=== PATIENT | female | born 1995 | race Caucasian/White ===

== ENCOUNTER 2022-03-05 08:06 | Emergency (ER) | payer OTHER, SELFPAY ==
[2022-03-05 08:16] VITALS: BP 120/83; PULSE 105; RESP 18; TEMP 36.5; O2SAT 99; BMI 19.9
--- NOTE | 2022-03-05 08:22 | ED_ITS ---
HPI - General Adult General Time Seen by Provider: 08:23 Date Seen: 03/05/22 Chief complaint: Nausea/Vomiting Stated complaint: 9 weeks can't keep anything down Time Seen by Provider: 03/05/22 08:16 Source: patient Mode of arrival: ambulatory Limitations: no limitations History of Present Illness HPI narrative: Patient is a 26 year white female with her 2nd about 9 weeks estimated gestational age, who is following with an OB doctor in [place]. She now lives in [place], but started care and weight-bearing like to continue there. She has had hyperemesis with her 1st , she still breast-feeding that child intermittently. She has had no fever chills abdominal pain trauma to the abdomen. She has had some Zofran prescribed air OB but it she has not picked it up yet. No chest pain, fevers, chills, dysuria frequency Related Data Home Medications Medication Instructions Recorded Confirmed doxylamine succinate 25 mg tablet 12.5 mg PO Q6H PRN 03/05/22 03/05/22 (Unisom (doxylamine)) metoclopramide HCl 10 mg tablet mg 03/05/22 pyridoxine (vitamin B6) 100 mg 50 mg PO DAILY 03/05/22 03/05/22 tablet (Vitamin B-6) Allergies Allergy/AdvReac Type Severity Reaction Status Date / Time amoxicillin Allergy Verified 03/05/22 08:18 Review of Systems Status of ROS: Reports: 6 or more systems reviewed and unremarkable except as noted in History and below Exam Narrative: Exam Narrative: Objective: Patient's vital signs unremarkable in general she is no apparent distress, noncyanotic Denies any vaginal bleeding or contractions Abdomen benign soft nontender extremities are no edema Skin periphery warm and dry Pulses regular Const: Vital Signs, click to edit/add: Vital Signs - 24 hr 03/05/22 08:16 Temperature 97.7 F Pulse Rate [Right Pulse Oximeter] 105 H Respiratory Rate 18 Blood Pressure [Ri ght Upper Arm] 120/83 Pulse Oximetry 99 Oxygen Delivery Me thod Room Air Course Vital Signs Vital signs: Initial Vital Signs Temperature 97.7 F 03/05/22 08:16 Temperature Source Temporal Artery Scan 03/05/22 08:16 Pulse Rate 105 H 03/05/22 08:16 Respiratory Rate 18 03/05/22 08:16 Blood Pressure 120/83 03/05/22 08:16 Blood Pressure Mean 95 03/05/22 08:16 Blood Pressure Position Sitting 03/05/22 08:16 Pulse Oximetry 99 03/05/22 08:16 Oxygen Delivery Method 03/05/22 08:16 Vital Signs Temperature 97.7 F 03/05/22 08:16 Pulse Rate 105 H 03/05/22 08:16 Respiratory Rate 18 03/05/22 08:16 Blood Pressure 120/83 03/05/22 08:16 Pulse Oximetry 99 03/05/22 08:16 Oxygen Delivery Method 03/05/22 08:16 Temperature 97.7 F 03/05/22 08:16 Pulse Rate 105 H 03/05/22 08:16 Respiratory Rate 18 03/05/22 08:16 Blood Pressure 120/83 03/05/22 08:16 Pulse Oximetry 99 03/05/22 08:16 Oxygen Delivery Method 03/05/22 08:16 Medical Decision Making MDM Narrative Medical decision making narrative: Patient has what appears to be hyperemesis gravidarum, and will give her IV fluid 1 L, IV Zofran 4 mg IV, will check a heme 4 basic 7. When fluids in she can go home and rest light activity. They live in [place], and relayed to them that they may need to come back for additional treatment as this tends to be recurrent. Can use the Zofran as prescribed by her Ob at home. Fluids, light diet. Return as needed, update OB doctor within the next day or 2 of troubles or concerns, or return to the ED. Discharge Plan Discharge Clinical Impression: Hyperemesis gravidarum Patient Disposition: Home w/ Parent or Adult Condition: Improved Additional Instructions: Light activity, rest, Zofran as prescribed by her Ob. Update OB in the next couple of days if problems or concerns, return to ED as needed. Activity Level: Light activity Discharge Diet: Regular Prescriptions: No Action metoclopramide HCl 10 mg tablet Label Comments: TAKE 1 TABLET BY MOUTH FOUR TIMES DAILY NEEDED FOR NAUSEA pyridoxine (vitamin B6) [Vitamin B-6] 100 mg tablet 50 mg PO DAILY Unisom (doxylamine) 25 mg tablet 12.5 mg PO Q6H PRN Stand Alone Forms: [facility] Info Instructions
[2022-03-05] MEDS: ONDANSETRON 2 MG/ML inj 4 MG IVP (08:36)
[2022-03-05] MEDS: 0.9 % SODIUM CHLORIDE 1000 ml 1,000 ML 6000 ML IV (08:36)
[2022-03-05 08:37] LABS: Basophils Absolute Auto 0.02 K/uL (0.00-0.30); Basophils Percent Auto 0.2 % (0.0-3.0); Eosinophils Absolute Auto 0.01 K/uL (0.00-0.50); Eosinophils Percent Auto 0.1 % (0.0-7.0); Hematocrit 38.1 % (33.0-51.0); Hemoglobin* 13.3 gm/dL (12.0-16.0); Immature Granulocytes Abs Auto 0.01 K/uL (0.00-0.30); Immature Granulocytes Pct Auto 0.1 %; Lymphocytes Percent Auto 11.4 % (20-44); Mean Corpuscular HGB Conc 35 gm/dL (32-36); Mean Corpuscular Hemoglobin 29 pg (26-34); Mean Corpuscular Volume 84 fL (80-100); Monocytes Percent Auto 2.7 % (0.0-11.0); Neutrophils Percent Auto 85.5 % (42.0-72.0); Platelet Count* 272 K/uL (140-440); RDW Coefficient of Variation % 11.9 % (11.5-15.5); Red Blood Count 4.52 m/uL (4.00-5.20)
[2022-03-05 08:41] VITALS: PULSE 73; O2SAT 98
[2022-03-05 08:49] LABS: Chloride* 101 mmol/L (96-114); Potassium* 3.8 mmol/L (3.6-5.1); Sodium* 135 mmol/L (135-149)
[2022-03-05 08:52] LABS: Carbon Dioxide* 15 mmol/L (20-32); Creatinine* 0.5 mg/dL (0.5-1.5); Est. Creatinine Clearance* 139.14; Estimated Glomerular Filt Rate 131 ml/min
[2022-03-05 08:53] LABS: Blood Urea Nitrogen* 15 mg/dL (5-24); Calcium* 9.2 mg/dL (8.4-10.6); Glucose* 87 mg/dL (60-115)
[2022-03-05 08:54] LABS: Slide Review Reflex No
== END 2022-03-05 09:12 | disposition home or self-care (01) ==
LOC: ED 08:39
PROVIDERS: Emergency Provider Family Medicine
DX: O21.0 Mild hyperemesis gravidarum (principal); Z3A.09 9 weeks gestation of pregnancy
CPT/HCPCS: 36415; 80048; 85025; 96374; 99283; J2405; J7030

== ENCOUNTER 2023-06-03 22:06 | Emergency (ER) | payer OTHER, SELFPAY ==
[2023-06-03 22:09] VITALS: BP 110/67; PULSE 140; RESP 16; TEMP 36.1; O2SAT 98
--- NOTE | 2023-06-03 22:19 | ED.GENADULT ---
HPI - General Adult General Chief complaint: Nausea/Vomiting Stated complaint: nausea, diarrhea Time Seen by Provider: 06/03/23 22:15 Source: patient Mode of arrival: ambulatory Limitations: no limitations History of Present Illness HPI narrative: 27-year-old female coming in today complaining of nausea and vomiting for the last 15-16 hours. Woke up this morning and started vomiting. States that she has to vomit and have diarrhea every couple of hours. No blood in her stool or vomitus. No fevers or chills. She has abdominal cramping but no significant pain. No chest pain or shortness of breath. Her baby was sick recently. Related Data Home Medications Medication Instructions Recorded Confirmed doxylamine succinate 25 mg tablet 12.5 mg PO Q6H PRN 03/05/22 03/05/22 (Unisom (doxylamine)) metoclopramide HCl 10 mg tablet mg 03/05/22 pyridoxine (vitamin B6) 100 mg 50 mg PO DAILY 03/05/22 03/05/22 tablet (Vitamin B-6) Previous Rx's Medication Instructions Recorded ondansetron HCl 4 mg tablet 4 mg PO TID PRN nausea and 06/03/23 vomiting #10 tabs Allergies Allergy/AdvReac Type Severity Reaction Status Date / Time amoxicillin Allergy Verified 03/05/22 08:18 Review of Systems Status of ROS: Reports: 10 or more systems reviewed and unremarkable except as noted in History and below [facility] Social History Smoking Status: Never smoker How often do you have a drink containing alcohol: never AUDIT-C Alcohol total score: 0 Non-prescribed substance use: denies use service: No Exam Narrative: Exam Narrative: Patient is tachycardic. Thin, well-developed patient in no acute distress. Alert and oriented. Answers questions appropriately. Mood and affect are appropriate. Thoughts are goal oriented and rational. No tangential or magical thinking noted. Patient speaks in full sentences without needing to catch her breath. She does not appear ill or toxic. HEENT: Normocephalic atraumatic. Pupils are equally round reactive to light. Extraocular muscles are intact. Conjunctivae are moist without any icterus noted. Moist mucous membranes. Posterior pharynx is normal. Neck is soft without lymphadenopathy. Cardiovascular: Heart is regular rate and rhythm S1 and S2 are present without any murmurs. Lungs: Clear to auscultation bilaterally no wheezes rhonchi or rales are appreciated. Patient takes deep breaths without any discomfort. Abdomen: Soft and nontender nondistended with normal bowel sounds. No guarding or rebound. Extremities: Bilateral lower extremities are without edema. Delete the Skin: Well perfused without any obvious rashes. Const: Vital Signs, click to edit/add: Vital Signs - 24 hr 06/03/23 22:09 Temperature 97.0 F L Pulse Rate [Left P ulse Oximeter] 140 H Respiratory Rate 16 Blood Pressure [Ri ght Upper Arm] 110/67 Pulse Oximetry 98 Oxygen Delivery Me thod Room Air Course Course ED Course: IV was established and patient received a L of normal saline and Zofran. Vital Signs Vital signs: Initial Vital Signs Temperature 97.0 F L 06/03/23 22:09 Temperature Source Temporal Artery Scan 06/03/23 22:09 Pulse Rate 140 H 06/03/23 22:09 Pulse Rhythm Regular 06/03/23 22:09 Respiratory Rate 16 06/03/23 22:09 Blood Pressure 110/67 06/03/23 22:09 Blood Pressure Mean 81 06/03/23 22:09 Blood Pressure Position Sitting 06/03/23 22:09 Pulse Oximetry 98 06/03/23 22:09 Oxygen Delivery Method Room Air 06/03/23 22:09 Vital Signs Temperature 97.0 F L 06/03/23 22:09 Pulse Rate 140 H 06/03/23 22:09 Respiratory Rate 16 06/03/23 22:09 Blood Pressure 110/67 06/03/23 22:09 Pulse Oximetry 98 06/03/23 22:09 Oxygen Delivery Method Room Air 06/03/23 22:09 Temperature 97.0 F L 06/03/23 22:09 Pulse Rate 140 H 06/03/23 22:09 Respiratory Rate 16 06/03/23 22:09 Blood Pressure 110/67 06/03/23 22:09 Pulse Oximetry 98 06/03/23 22:09 Oxygen Delivery Method Room Air 06/03/23 22:09 Medications Administered Medications: Generic Name Dose Route Start Last Admin Trade Name Freq PRN Reason Stop Dose Admin Sodium Chloride 1,000 mls @ 1,000 mls/hr 06/03/23 22:30 06/03/23 22:32 0.9 % Sodium Chloride 1000 Ml IV 06/03/23 23:29 1,000 mls/hr .Q1H MIRLANDE Administration Ondansetron HCl 4 mg 06/03/23 22:19 06/03/23 22:31 Ondansetron 2 Mg/Ml Inj IVP 06/03/23 22:20 4 mg ONCE ONE Administration Medical Decision Making MDM Narrative Medical decision making narrative: 27-year-old female with gastroenteritis. Treated per above. We discussed hydration with things like Gatorade and Pedialyte. Will send her home with some tablets of Zofran to take as needed. Follow-up with primary care if not improving. Discharge Plan Discharge Clinical Impression: Gastroenteritis Patient Disposition: Home, Self-Care Condition: Stable Additional Instructions: Do your best to stay hydrated by taking small sips of fluid frequently throughout the day. Recommend Pedialyte or Gatorade. Slowly advanced her diet. We will also send you home with some Zofran, nausea medication to help with the vomiting. Diarrhea has been lingering for several days. Prescriptions: New ondansetron HCl 4 mg tablet 4 mg PO TID PRN (Reason: nausea and vomiting) Qty: 10 0RF No Action metoclopramide HCl 10 mg tablet Patient Comments: TAKE 1 TABLET BY MOUTH FOUR TIMES DAILY NEEDED FOR NAUSEA pyridoxine (vitamin B6) [Vitamin B-6] 100 mg tablet 50 mg PO DAILY Unisom (doxylamine) 25 mg tablet 12.5 mg PO Q6H PRN Follow Up/Referrals: Provider,Not a Local [Primary Care Provider] - Stand Alone Forms: [employer] Info Instructions
[2023-06-03] MEDS: ONDANSETRON 2 MG/ML inj 4 MG IVP (22:31)
[2023-06-03] MEDS: 0.9 % SODIUM CHLORIDE 1000 ml 1,000 ML IV (22:32)
--- OUTSIDE RECORDS SUMMARY | 2023-06-03 23:00 | XMS_ITS | Clinical Summary ---
Author Name Unknown Organization [facility] Address [place], [place] [address] Care Team Providers Care Clay Puddler Name Role Phone Ling Marlow MD Primary Care Provider Allergies Active Allergy Reactions Criticality Noted Date Comments Amoxicillin Rash,Fever 04/05/2021 Sulfa (Sulfonamide Antibiotics) Rash 03/24 Medications Medication Sig Dispensed Refills Start Date End Date Status vit/iron fum/folic ac ( 1 + 1 ORAL) Take by mouth. 0 Active [id number] 1.5 mg iron- 8.73 mg CpID Take by mouth. 0 Active cholecalciferol, vitamin D3, (Vitamin D3) 100 mcg (4,000 unit) cap Take by mouth. 0 Active acetaminophen (TYLENOL) 325 mg tablet Take 1-2 Tablets (325-650 mg) by mouth every 4 hours if needed (mild pain). Max acetaminophen dose: 4000mg in 24 hrs. 100 Tablet 0 04/06/2021 Active ibuprofen (Motrin IB) 200 mg tablet Take 1-3 Tablets (200-600 mg) by mouth every 6 hours if needed (for uterine cramping). Take with food. 100 Tablet 0 04/06/2021 Active Breast Pump PurchaseIndication s:Care and examination of lactating mother Electric breast pump for home use. Gestational age at delivery: 40 weeks. Reason for need: problem. Length of need: 99 months (lifetime use) 1 Each 0 04/06/2021 Active Breast Pump PurchaseIndication s:Care and examination of lactating mother Electric breast pump for home use. Gestational age at delivery: 41 weeks. Reason for need: Care of lactating mother. Length of need: 99 months (lifetime use) 1 Each 0 10/13/2022 Active Active Problems Problem Noted Date Diagnosed Date Normal labor and delivery 10/13/2022 Overview: OP position 10/11/2022 Group B Streptococcus ti r, delivered, current hospitalization 04/06/2021 Resolved Problems Problem Noted Date Diagnosed Date Resolved Date Encounter for supervision of normal first in third trimester 04/05/2021 04/05/2021 Social History Tobacco Use Types Packs/Day Years Used Date Smoking Tobacco: Never Smokeless Tobacco: Never Alcohol Use Standard Drinks/Week Comments Never 0 (1 standard drink = 0.6 oz pur e alcohol) Social Connections Answer Date Recorded Frequency of Communication with Friends and Fami ly Not on file 10/11/2022 Sex and Gender Information Value Date Recorded Sex Assigned at Not on file Gender Identity Not on file Sexual Orientation Not on file Obstetrics History Para Term AB IAB SAB Ectopic Multiple Livin g Live Births 2 2 2 0 2 2 Date Outcome GA Total Labor Labor/2nd/3rd Weight Sex Delivery Anes PTL Antonia A1 A5 Name Cl in 04/05 Term 40w 0d 14h 34m 13h 46m/0h 41m/0h 07m 3.14 kg (6 lb 14.8 oz) M Vag Epidu ral,L ocal Amira ng 8 9 SIRBA ,BB Francisca Dang MD Complications:None Delivery Location:Hospital ( [facility] L&D TRIAGE) 10/12 Term 41w 2d 16h 27m 15h 36m/0h 46m/0h 05m 3.74 kg (8 lb 3.9 oz) F Vag-Spont Epidu ral Amira ng 8 9 SIRBA ,BG Francisca Dang MD Complications:None Delivery Location:Hospital ( [facility] [address] MB L&D TRIAGE) Last Filed Vital Signs Vital Sign Reading Time Taken Comments Blood Pressure 103/61 10/13/2022 8:58 AM CDT Pulse 80 10/13/2022 8:58 AM CDT Temperature 36.7 ??C (98 ??F) 10/13/2022 8:58 AM CDT Respiratory Rate 16 10/13/2022 8:58 AM CDT Oxygen Saturation 98% 10/13/2022 8:58 AM CDT Inhaled Oxygen Concentration - - Weight 74.5 kg (164 lb 4.8 oz) 10/11/2022 7:35 P M CDT Height 162.6 cm (5' 4) 10/11/2022 7:35 PM CDT Body Mass Index 28.2 10/11/2022 7:35 PM CDT Plan of Treatment Health Maintenance Due Date Last Done Comments COVID-19 vaccine series (#1) 02/01/1994 Tdap 2004 Depression screening for age 12+ 2005 BMI (ht and wt on same day) for age 18+ 08/03/2011 Hepatitis C screening for ag e 18-79 08/03/2011 Tetanus booster 2013 Pap test for age 21-65 2014 Influenza for age 9-49 12/23/2022 HIV for age 15-65 Completed 04/05/2022 Pneumococcal series for age 6-64 Aged Out No longer eligible based on patient's age to complete this topic Advance Directives Latest Code Status on File Code Status Date Activated Date Inactivated Comments Full Code 10/12/2022 4:00 AM 10/13/2022 1:52 PM Question Answer Comments Code Status Discussion: Other Code Status History Code Status Date Activated Date Inactivated Comments Full Code 04/05/2021 10:31 AM 04/06/2021 3:49 PM Question Answer Comments Code Status Discussion: Other Care Teams Clay Puddler Relationship Specialty Start Date End Date Ling Marlow MD [id number] [place] [address] PCP - General Family Practice 03/10/21
== END 2023-06-03 23:13 | disposition home or self-care (01) ==
LOC: ED 22:57
PROVIDERS: Emergency Provider Family Medicine
DX: K52.9 Noninfective gastroenteritis and colitis, unspecified (principal)
CPT/HCPCS: 96374; 99284; J2405; J7030

== ENCOUNTER 2023-08-18 15:12 | Outpatient (CLI) | payer OTHER, SELFPAY ==
--- OUTSIDE RECORDS SUMMARY | 2023-08-18 15:15 | XMS_ITS | Clinical Summary ---
Author Name Unknown Organization [place] Address [facility]0 [facility] [place] [address] Care Team Providers Care Lay Out Former Name Role Phone No Ref-Primary, Physician Primary Care Provider Allergies Active Allergy Reactions Criticality Noted Date Comments Amoxicillin 06/20/2023 Encounters Date Type Department Care Team Description 06/20/2023 7:20 PM STORAGE BRINE WORKER - 06/20/2023 10:47 PM STORAGE BRINE WORKER Emergency [facility] Emergency Department [address] [place] [phone] Boris Lock MD Ectopic , unspecified location, unspecified whether intrauterine present Discharge Disposition: Home or Self Care 06/20/2023 Travel 06/17/2023 10:15 AM STORAGE BRINE WORKER Lab [facility] Laboratory [address] [place] [phone] Ectopic (Primary Dx) 06/17/2023 Travel from Last 3 Months Social History Tobacco Use Types Packs/Day Years Used Date Smoking Tobacco: Never Assessed Adolescent Education Answer Date Record ed Getting School Help Needed Not on file 06/17 Estimated Date of Delivery Comme nts Yes 01/23/2024 Sex and Gender Information Value Date Recorded Sex Assigned at Not on file Gender Identity Not on file Sexual Orientation Not on file Last Filed Vital Signs Vital Sign Reading Time Taken Comments Blood Pressure 106/57 06/20/2023 10:40 PM STORAGE BRINE WORKER Pulse 88 06/20/2023 10:40 PM STORAGE BRINE WORKER Temperature 37.4 ??C (99.4 ??F) 06/20/2023 5:03 PM CS T Respiratory Rate 16 06/20/2023 5:05 PM STORAGE BRINE WORKER Oxygen Saturation 96% 06/20/2023 10:40 PM STORAGE BRINE WORKER Inhaled Oxygen Concentration - - Weight 52.2 kg (115 lb) 06/20/2023 5:03 PM STORAGE BRINE WORKER Height 162.6 cm (5' 4) 06/20/2023 5:03 PM STORAGE BRINE WORKER Body Mass Index 19.74 06/20/2023 5:03 PM STORAGE BRINE WORKER Plan of Treatment Health Maintenance Due Date Last Done Comments ADVANCE CARE PLANNING 1993 ANNUAL REVIEW OF HM ORDERS 1993 YEARLY PREVENTIVE VISIT 1993 HIV SCREENING 2008 HEPATITIS C SCREENING 08/03/2011 HEPATITIS B IMMUNIZATION (1 of 3 - 19+ 3-dose series) 2012 PAP 2014 DTAP/TDAP/TD IMMUNIZATION (1 - Tdap) 2018 COVID-19 Vaccine (1 - 2022-2 4 season) 2022 INFLUENZA VACCINE (#1) 2022 PHQ-2 (once per calendar year) 2023 RSV VACCINE ( & 60+ ) (1 - Risk 1-dose series) 12/24/2023 HPV IMMUNIZATION Aged Out No longer e ligible based on patient's age to complete this topic IPV IMMUNIZATION Aged Out No longer e ligible based on patient's age to complete this topic MENINGITIS IMMUNIZATION Aged Out No l onger eligible based on patient's age to complete this topic Pneumococcal Vaccine: Pediat rics (0 to 5 Years) and At-Risk Patients (6 to 64 Years) Aged Out No longer eligi ble based on patient's age to complete this topic RSV MONOCLONAL ANTIBODY Aged Out No l onger eligible based on patient's age to complete this topic Procedures Procedure Name Priority Date/Time Associated Diagnosis Comments US OB <14 WEEKS WITH TRANSVAGINAL SINGLE STAT 06/20/2023 9:08 PM STORAGE BRINE WORKER ABO/RH TYPE AND SCREEN STAT 06/20/2023 5:51 PM STORAGE BRINE WORKER TYPE AND SCREEN, ADULT STAT 06/20/2023 5:51 PM STORAGE BRINE WORKER HCG QUANTITATIVE STAT 06/20/2023 5:51 PM STORAGE BRINE WORKER BASIC METABOLIC PANEL STAT 06/20/2023 5:51 PM STORAGE BRINE WORKER CBC WITH PLATELETS STAT 06/20/2023 5: 51 PM STORAGE BRINE WORKER HCG QUANTITATIVE STAT 06/17/2023 10:19 AM STORAGE BRINE WORKER Ectopic from Last 3 Months Results * US OB <14 Weeks W Transvaginal (06/20/2023 9:08 PM STORAGE BRINE WORKER) Anatomical Region Laterality Modality Abdomen/Pelvis Ultrasound 06/20/2023 9:08 PM STORAGE BRINE WORKER Impressions 06/20/2023 9:27 PM STORAGE BRINE WORKER IMPRESSION: 1. ??Sonographic findings most consistent with left sided ectopic . Critical Result: Suspected ectopic Finding was identified on 06/20/2023 9:23 PM STORAGE BRINE WORKER. Alix Lock M.D. was contacted by me on 06/20/2023 9:23 PM STORAGE BRINE WORKER and verbalized understanding of the critical result. Narrative 06/20/2023 9:27 PM STORAGE BRINE WORKER EXAM: US OB <14 WEEKS WITH TRANSVAGINAL SINGLE LOCATION: [facility] DATE: 06/20/2023 INDICATION: 5 wks with lower abd pain COMPARISON: None. TECHNIQUE: Transabdominal scans were performed. Endovaginal ultrasound was performed to better visualize the embryo. FINDINGS: UTERUS: No evidence of intrauterine gestation. RIGHT OVARY: 2.7 x 2.7 x 1.6 cm. LEFT OVARY: 2.0 x 1.5 x 1.8 cm. Adjacent 1.8 cm paraovarian mass with central cystic area highly suspicious for ectopic . Estimated sac diameter of 0.5 cm corresponds to an estimated gestational age of 5 weeks, 1 day. Procedure Note Jesse Leslie MD - 06/20/2023 EXAM: US OB <14 WEEKS WITH TRANSVAGINAL SINGLE LOCATION: [facility] DATE: 06/20/2023 INDICATION: 5 wks with lower abd pain COMPARISON: None. TECHNIQUE: Transabdominal scans were performed. Endovaginal ultrasound wasperformed to better visualize the embryo. FINDINGS: UTERUS: No evidence of intrauterine gestation. RIGHT OVARY: 2.7 x 2.7 x 1.6 cm. LEFT OVARY: 2.0 x 1.5 x 1.8 cm. Adjacent 1.8 cm paraovarian mass withcentral cystic area highly suspicious for ectopic . Estimated sacdiameter of 0.5 cm corresponds to an estimated gestational age of 5 weeks,1 day. IMPRESSION: 1. Sonographic findings most consistent with left sided ectopicpregnancy. Critical Result: Suspected ectopic Finding was identified on 06/20/2023 9:23 PM STORAGE BRINE WORKER. Alix Lock M.D. was contacted by me on 06/20/2023 9:23 PM CSTand verbalized understanding of the critical result. Boris Lock MD IMG US ORDERABLES * Adult Type and Screen (06/20/2023 5:51 PM STORAGE BRINE WORKER) Pathologist [facility] ABO/RH(D) A POS 06/20/2023 5:45 PM STORAGE BRINE WORKER [facility]OD [facility] Antibody Screen Negative Negative 06/20/2023 5:45 PM STORAGE BRINE WORKER [facility] SPECIMEN EXPIRATION DATE [id number] 06/20/2023 5:45 PM STORAGE BRINE WORKER [facility] Blood BLOOD SPECIMEN / Unknown Venipuncture / Unknown 06/20/2023 5:51 PM STORAGE BRINE WORKER 06/20/2023 5:55 PM STORAGE BRINE WORKER Amairani Arenas MD LAB - BLOOD BANK BORIS T ORDER [facility] [address] * (ABNORMAL) HCG quantitative (blood) (06/20/2023 5:51 PM STORAGE BRINE WORKER) Only the most recent of2 resultswithin the time period is included. hCG Quantitative 58(H) <5 mIU/mL 06/20/19 6:31 PM STORAGE BRINE WORKER [facility] Comment: Adult: 0-5 mIU/mL for healthy non- person Neonates: Should be within normal ranges by 2 days after Blood BLOOD SPECIMEN / Unknown Venipuncture / Unknown 06/20/2023 5:51 PM STORAGE BRINE WORKER 06/20/2023 5:55 PM STORAGE BRINE WORKER Amairani Arenas MD LAB - BLOOD ORDERABL ES N LABORATORY [facility] [address] [phone] * (ABNORMAL) Basic metabolic panel (06/20/2023 5:51 PM STORAGE BRINE WORKER) [facility] Sodium 140 135 - 145 mmol/L 06/20/2023 6:31 PM [facility] Comment:Reference intervals for this test were updated on 01/17/2023 to more accurately reflect our healthy population. There may be differences in the flagging of prior results with similar values performed with this method. Interpretation of those prior results can be made in the context of the updated reference intervals. Potassium 4.4 3.4 - 5.3 mmol/L 06/20/2023 6:31 PM [facility] Chloride 105 98 - 107 mmol/L 06/20/2023 6:31 PM [facility] Carbon Dioxide (CO2) 24 22 - 29 mmol/L 06/20/2023 6:31 PM [facility] Anion Gap 11 7 - 15 mmol/L 06/20/2023 6:31 PM [facility] Urea Nitrogen 19.1 6.0 - 20.0 mg/dL 06/20/2023 6:31 PM [facility] Creatinine 0.71 0.51 - 0.95 mg/dL 06/20/2023 6:31 PM [facility] GFR Estimate >90 >60 mL/min/1. 73m2 06/20/2023 6:31 PM [facility] Calcium 9.4 8.6 - 10.0 mg/dL 06/20/2023 6:31 PM [facility] Glucose 103(H) 70 - 99 mg/dL 06/20/2023 6:31 PM [facility] Blood BLOOD SPECIMEN / Unknown Venipuncture / Unknown 06/20/2023 5:51 PM STORAGE BRINE WORKER 06/20/2023 5:55 PM STORAGE BRINE WORKER Amairani Arenas MD LAB - BLOOD ORDERABL ES [facility] [address] [place] [address], [facility] [phone] * CBC (+ platelets, no diff) (06/20/2023 5:51 PM STORAGE BRINE WORKER) WBC Count 8.8 4.0 - 11.0 10e3/uL 06/20/2023 6:01 PM STORAGE BRINE WORKER [facility] RBC Count 5.00 3.80 - 5.20 10e6/uL 06/20/2023 6:01 PM STORAGE BRINE WORKER [facility] Hemoglobin 14.1 11.7 - 15.7 g/dL 06/20/2023 6:01 PM STORAGE BRINE WORKER [facility] Hematocrit 42.0 35.0 - 47.0 % 06/20/2023 6:01 PM STORAGE BRINE WORKER [facility] MCV 84 78 - 100 fL 06/20/2023 6:01 PM STORAGE BRINE WORKER [facility] MCH 28.2 26.5 - 33.0 pg 06/20/2023 6:01 PM STORAGE BRINE WORKER [facility] MCHC 33.6 31.5 - 36.5 g/dL 06/20/2023 6:01 PM STORAGE BRINE WORKER [facility] RDW 12.1 10.0 - 15.0 % 06/20/2023 6:01 PM STORAGE BRINE WORKER [facility] Platelet Count 351 150 - 450 10e3/uL 06/20/2023 6:01 PM STORAGE BRINE WORKER [facility] Blood BLOOD SPECIMEN / Unknown Venipuncture / Unknown 06/20/2023 5:51 PM STORAGE BRINE WORKER 06/20/2023 5:55 PM STORAGE BRINE WORKER Amairani Arenas MD LAB - BLOOD ORDERABL ES Performing Organization Address City/[facility]/ZIP Co de Phone Number N LABORATORY [facility] [address] [place] [address], [facility] [phone] from Last 3 Months Care Teams Lay Out Former Relationship Specialty Start Date End Date No Ref-Primary, Physician PCP - General 06/20/23
--- OUTSIDE RECORDS SUMMARY | 2023-08-18 15:15 | XMS_ITS | Referral Summary ---
Author Name Unknown Organization [place] Address [facility]0 [facility] [place] [address] Care Team Providers Care Music Professionals Name Role Phone No Ref-Primary, Physician Primary Care Provider Encounters Date Type Department Care Team Description 06/20/2023 Travel 06/20/2023 7:20 PM CAR SPOTTER - 06/20/2023 10:47 PM CAR SPOTTER Emergency [facility] Emergency Department [address] [place] [phone] Boris Lock MD Ectopic , unspecified location, unspecified whether intrauterine present Discharge Disposition: Home or Self Care 06/17/2023 Travel 06/17/2023 10:15 AM CAR SPOTTER Lab [facility] Laboratory [address] [place] [phone] Ectopic (Primary Dx) from Last 3 Months Allergies Active Allergy Reactions Criticality Noted Date Comments Amoxicillin 06/20/2023 Social History Tobacco Use Types Packs/Day Years [...] Comments Blood Pressure 106/57 06/20/2023 10:40 PM CAR SPOTTER Pulse 88 06/20/2023 10:40 PM CAR SPOTTER Temperature 37.4 ??C (99.4 ??F) 06/20/2023 5:03 PM CS T Respiratory Rate 16 06/20/2023 5:05 PM CAR SPOTTER Oxygen Saturation 96% 06/20/2023 10:40 PM CAR SPOTTER Inhaled Oxygen Concentration - - Weight 52.2 kg (115 lb) 06/20/2023 5:03 PM CAR SPOTTER Height 162.6 cm (5' 4) 06/20/2023 5:03 PM CAR SPOTTER Body Mass Index 19.74 06/20/2023 5:03 PM CAR SPOTTER Plan of Treatment Not on file Procedures Procedure Name Priority Date/Time Associated Diagnosis Comments US OB <14 WEEKS WITH TRANSVAGINAL SINGLE STAT 06/20/2023 9:08 PM CAR SPOTTER ABO/RH TYPE AND SCREEN STAT 06/20/2023 5:51 PM CAR SPOTTER TYPE AND SCREEN, ADULT STAT 06/20/2023 5:51 PM CAR SPOTTER HCG QUANTITATIVE STAT 06/20/2023 5:51 PM CAR SPOTTER BASIC METABOLIC PANEL STAT 06/20/2023 5:51 PM CAR SPOTTER CBC WITH PLATELETS STAT 06/20/2023 5: 51 PM CAR SPOTTER HCG QUANTITATIVE STAT 06/17/2023 10:19 AM CAR SPOTTER Ectopic from Last 3 Months Results * US OB <14 Weeks W Transvaginal (06/20/2023 9:08 PM CAR SPOTTER) Anatomical Region Laterality Modality Abdomen/Pelvis Ultrasound 06/20/2023 9:08 PM CAR SPOTTER Impressions 06/20/2023 9:27 PM CAR SPOTTER IMPRESSION: 1. ??Sonographic findings most consistent with left sided ectopic . Critical Result: Suspected ectopic Finding was identified on 06/20/2023 9:23 PM CAR SPOTTER. Alix Lock M.D. was contacted by me on 06/20/2023 9:23 PM CAR SPOTTER and verbalized understanding of the critical result. Narrative 06/20/2023 9:27 PM CAR SPOTTER EXAM: US OB <14 WEEKS WITH TRANSVAGINAL SINGLE LOCATION: [facility] DATE: 06/20/2023 INDICATION: 5 wks with lower [...] OB <14 WEEKS WITH TRANSVAGINAL SINGLE LOCATION: [facility] DATE: 06/20/2023 INDICATION: 5 wks with lower [...] Finding was identified on 06/20/2023 9:23 PM CAR SPOTTER. Alix Lock M.D. was contacted by me on 06/20/2023 9:23 PM CSTand verbalized understanding of the critical result. Boris Lock MD [facility] US ORDERABLES * Adult Type and Screen (06/20/2023 5:51 PM CAR SPOTTER) ABO/RH(D) A POS 06/20/2023 5:45 PM CAR SPOTTER [facility] BLOOD [facility]ANK Antibody Screen Negative Negative 06/20/2023 5:45 PM CAR SPOTTER [facility] BLOOD BANK SPECIMEN EXPIRATION DATE [id number] 06/20/2023 5:45 PM CAR SPOTTER N BLOOD BANK Blood BLOOD SPECIMEN / Unknown Venipuncture / Unknown 06/20/2023 5:51 PM CAR SPOTTER 06/20/2023 5:55 PM CAR SPOTTER Amairani Arenas MD LAB - BLOOD BANK BORIS T ORDER Performing Organization Address [facility] Co de Phone Number [facility]OD [facility] [address] [place] [address], [facility] * (ABNORMAL) HCG quantitative (blood) (06/20/2023 5:51 PM CAR SPOTTER) Only the most recent of2 resultswithin the time period is included. Pathologist [facility] hCG Quantitative 58(H) <5 mIU/mL 06/20/19 6:31 PM CAR SPOTTER N LABORATORY Comment: Adult: 0-5 mIU/mL for healthy non- person Neonates: Should be within normal ranges by 2 days after Blood BLOOD SPECIMEN / Unknown Venipuncture / Unknown 06/20/2023 5:51 PM CAR SPOTTER 06/20/2023 5:55 PM CAR SPOTTER Amairani Arenas MD LAB - BLOOD ORDERABL ES Performing Organization Address [facility] de Phone Number [facility] [address] [place] [address], [facility] [phone] * (ABNORMAL) Basic metabolic panel (06/20/2023 5:51 PM CAR SPOTTER) Pathologist [facility] Sodium 140 135 - 145 mmol/L 06/20/2023 6:31 PM CAR SPOTTER [facility] Comment:Reference intervals for this test were updated on 01/17/2023 to more accurately reflect our healthy population. There may be differences in the flagging of prior results with similar values performed with this method. Interpretation of those prior results can be made in the context of the updated reference intervals. Potassium 4.4 3.4 - 5.3 mmol/L 06/20/2023 6:31 PM CAR SPOTTER N LABORATORY Chloride 105 98 - 107 mmol/L 06/20/2023 6:31 PM CAR SPOTTER N LABORATORY Carbon Dioxide (CO2) 24 22 - 29 mmol/L 06/20/2023 6:31 PM [facility] Anion Gap 11 7 - 15 mmol/L 06/20/2023 6:31 PM [facility] Urea Nitrogen 19.1 6.0 - 20.0 mg/dL 06/20/2023 6:31 PM [facility] Creatinine 0.71 0.51 - 0.95 mg/dL 06/20/2023 6:31 PM [facility] GFR Estimate >90 >60 mL/min/1. 73m2 06/20/2023 6:31 PM [facility] Calcium 9.4 8.6 - 10.0 mg/dL 06/20/2023 6:31 PM [facility] Glucose 103(H) 70 - 99 mg/dL 06/20/2023 6:31 PM [facility] Blood BLOOD SPECIMEN / Unknown Venipuncture / Unknown 06/20/2023 5:51 PM CAR SPOTTER 06/20/2023 5:55 PM [facility] Amairani Arenas MD LAB - BLOOD ORDERABL ES N LABORATORY [facility] [address] [phone] * CBC (+ platelets, no diff) (06/20/2023 5:51 PM CAR SPOTTER) WBC Count 8.8 4.0 - 11.0 10e3/uL 06/20/2023 6:01 PM [facility] RBC Count 5.00 3.80 - 5.20 10e6/uL 06/20/2023 6:01 PM [facility] Hemoglobin 14.1 11.7 - 15.7 g/dL 06/20/2023 6:01 PM [facility] Hematocrit 42.0 35.0 - 47.0 % 06/20/2023 6:01 PM [facility] MCV 84 78 - 100 fL 06/20/2023 6:01 PM [facility] MCH 28.2 26.5 - 33.0 pg 06/20/2023 6:01 PM [facility] MCHC 33.6 31.5 - 36.5 g/dL 06/20/2023 6:01 PM CAR SPOTTER [facility] RDW 12.1 10.0 - 15.0 % 06/20/2023 6:01 PM CAR SPOTTER [facility] Platelet Count 351 150 - 450 10e3/uL 06/20/2023 6:01 PM CAR SPOTTER [facility] Blood BLOOD SPECIMEN / Unknown Venipuncture / Unknown 06/20/2023 5:51 PM CAR SPOTTER 06/20/2023 5:55 PM CAR SPOTTER Amairani Arenas MD LAB - BLOOD ORDERABL ES [facility] [address] [place], [place] [address] [place] [phone] from Last 3 Months Care Teams Music Professionals Relationship Specialty Start Date End Date No Ref-Primary, Physician PCP - General 06/20/23
--- OUTSIDE RECORDS SUMMARY | 2023-08-18 15:15 | XMS_ITS | Encounter Summary ---
Author Name Unknown Organization [place] Address [facility]0 [facility] [place] [address] Care Team Providers Care Shipyard Painter Name Role Phone No Ref-Primary, Physician Primary Care Provider Encounter Details Date Type Department Care Team (Latest Contact Info) Description 06/20/2023 Travel Social History Tobacco Use Types Packs/Day Years Used Date Smoking Tobacco: Never Assessed Adolescent Education Answer Date Record ed Getting School Help Needed Not on file 06/17 Estimated Date of Delivery Comme nts Yes 01/23/2024 Sex and Gender Information Value Date Recorded Sex Assigned at Not on file Gender Identity Not on file Sexual Orientation Not on file documented as of this encounter Plan of Treatment Not on file documented as of this encounter Visit Diagnoses Not on filedocumented in this encounter Care Teams Shipyard Painter Relationship Specialty Start Date End Date No Ref-Primary, Physician PCP - General 06/20/23 documented as of this encounter
--- OUTSIDE RECORDS SUMMARY | 2023-08-18 15:15 | XMS_ITS | Encounter Summary ---
Author Name Unknown Organization [place] Address [facility] [place] [address] Care Team Providers Care Flying Teacher Name Role Phone No Ref-Primary, Physician Primary Care Provider Reason for Visit * Reason Comments Complications Abdominal Pain Encounter Details Date Type Department Care Team (Late st Contact Info) Description 06/20/2023 7:20 PM FIELD RECORDER - 06/20/2023 10:47 PM FIELD RECORDER Emergency [facility] Emergency Department [address] [place] [phone] Boris Lock MD [facility] [place] [address] Ectopic , unspecified location, unspecified whether intrauterine present Discharge Disposition: Home or Self Care Social History Tobacco Use Types Packs/Day Years Used Date Smoking Tobacco: Never Assessed Adolescent Education Answer Date Record ed Getting School Help Needed Not on file 06/17 Estimated Date of Delivery Comme nts Yes 01/23/2024 Sex and Gender Information Value Date Recorded Sex Assigned at Not on file Gender Identity Not on file Sexual Orientation Not on file documented as of this encounter Last Filed Vital Signs Vital Sign Reading Time Taken Comments Blood Pressure 106/57 06/20/2023 10:40 PM FIELD RECORDER Pulse 88 06/20/2023 10:40 PM FIELD RECORDER Temperature 37.4 ??C (99.4 ??F) 06/20/2023 5:03 PM CS T Respiratory Rate 16 06/20/2023 5:05 PM FIELD RECORDER Oxygen Saturation 96% 06/20/2023 10:40 PM FIELD RECORDER Inhaled Oxygen Concentration - - Weight 52.2 kg (115 lb) 06/20/2023 5:03 PM FIELD RECORDER Height 162.6 cm (5' 4) 06/20/2023 5:03 PM FIELD RECORDER Body Mass Index 19.74 06/20/2023 5:03 PM FIELD RECORDER documented in this encounter Discharge Instructions * Attachments The following attachments cannot be sent through Care Everywhere. * Ectopic : Methotrexate (Namibian) * Ectopic : Surgery (Namibian) documented in this encounter ED Notes * Aissatou Jefferson RN - 06/20/2023 7:20 PM CST Bed: [place] [address] Expected date: 06/20/23 Expected time: 7:14 PM Means of arrival: Walked Comments: D RECORDER * Teresa Haley RN - 06/20/2023 5:06 PM CST Pt arrives to triage for complications regarding an ectopic . Pt is about 5 weeks and is having cramping in her abdomen and back now. Pt called her clinic and they advised her to come in. She is having spotting but no clots present with vaginal bleeding. D RECORDER * Boris Lock MD - 06/20/2023 4:51 PM CST Emergency Department Encounter NAME: Aline Du AGE: [age] year old female DATE OF : 1995 EVALUATION DATE & TIME: No admission date for patient encounter. PCP: No Ref-Primary, Physician ED PROVIDER: Boris Lock M.D. Chief Complaint Patient presents with Complications Abdominal Pain FINAL IMPRESSION: 1. Ectopic , unspecified location, unspecified whether intrauterine present MEDICAL DECISION MAKIN:29 PM I met with the patient, obtained history, performed an initial exam, and discussed options and plan for diagnostics and treatment here in the ED. This patient is a 27-year-old female who had a positive test 2 weeks ago. She is currently nursing and has not had a menstrual period since November 2022. She has been having vaginal bleeding for the past week. She has been seeing her [facility] and Elie Martinez who has been following her serum hCG. it has trended down from 7 50-1 06 yesterday. She has had an ultrasound clinicwhich was thought to show a left ectopic . She has not done methotrexate. Yesterday she developed left pelvic pain and cramping which worsened today prompting her to come to the ER. In the ER vital signs are stable with a blood pressure 121/67 pulse 95. Her hemoglobin was 14.1 and platelets 351. Her blood type is a positive. Her serum hCG was 58. A pelvic ultrasound is ordered to confirm the ectopic . The patient has preferred to let it resolve on its own unless she requires surgery. Pertinent Labs & Imaging studies reviewed. (See chart for details) The importance of close follow up was discussed. We reviewed warning signs and symptoms, and I instructed Ms. Du to return to the emergency department immediately if she develops any new or worsening symptoms. I provided additional verbal discharge instructions. Ms. Du expressed understandingand agreement with this plan of care, her questions were answered, and she was discharged in stablecondition. Medical Decision Making History: Supplemental history from: Documented in chart, if applicable External Record(s) reviewed: Documented in chart, if applicable. Work Up: Chart documentation includes differential considered and any EKGs or imaging independently interpreted by provider, where specified. In additional to work up documented, I considered the following work up: Documented in chart, if applicable. External consultation: Discussion of management with another provider: Documented in chart, if applicable Complicating factors: Care impacted by chronic illness: None Care affected by social determinants of health: Access to Medical Care Disposition considerations: Admission was considered but the patient preferred to avoid surgery. MEDICATIONS GIVEN IN THE EMERGENCY: Medications - No data to display NEW PRESCRIPTIONS STARTED AT TODAY'S ER VISIT: New Prescriptions No medications on file HPI Patient information was obtained from: Patient Use of Mold Capper: N/A Aline Du is a 27 year old female with a past medical history of two normal labor and deliveries, who presents by walk in for evaluation of complications. The patient is and estimates that she is about 5 weeks . She reports onset of spottingon Monday (~6 days ago). She states that she had increased vaginal bleeding 5 days ago, so she went in to her clinic ([facility] in [place]) where ultrasound showed left ectopic . The patient developed intermittent, jabbing left pelvic pain yesterday with abdominal cramping. Today, the pain worsened and she called her clinic, who recommended ED presentation. She endorses some left flank pain yesterday, but denies any current pain. Per patient, hCG counts: 5 days ago: 750 3 days ago: 230 1 day ago: 106 She plans for natural resolution with surgical intervention if needed, but no treatment with methotrexate. She denies fevers. The patient's last menstrual period was in November. She had delivered her now 8- month old child in October. REVIEW OF SYSTEMS Review of Systems Genitourinary: Positive for pelvic pain (left sided, not present now) and vaginal bleeding. PAST MEDICAL HISTORY: No past medical history on file. PAST SURGICAL HISTORY: No past surgical history on file. CURRENT MEDICATIONS: No current facility-administered medications for this encounter. No current outpatient medications on file. ALLERGIES: Allergies Allergen Reactions Amoxicillin FAMILY HISTORY: No family history on file. SOCIAL HISTORY: Social History Socioeconomic History Marital status: PHYSICAL EXAM: Vitals: BP 121/67 Pulse 95 Temp 99.4 ??F (37.4 ??C) (Temporal) Resp 16 Ht 1.626 m (5' 4) Wt 52.2 kg (115 lb) SpO2 98% BMI 19.74 kg/m?? Constitutional: Well developed, well nourished. Comfortable appearing. HEAD:Normocephalic, atraumatic, Pulmonary: Clear to auscultation bilaterally, no respiratory distress, no wheezing, speaks full sentences easily. Chest: No chest wall tenderness Cardiovascular: Normal heart rate, regular rhythm, no murmurs. No lower extremity edema, 2+ DP pulses. GI: Soft, not distended, no masses. No hepatosplenomegaly. Mild tenderness to left lateral pelvis. Back: No CVA tenderness Skin: Warm, dry, no rash. Neurologic: Alert & oriented x 3, speech clear, moving all extremities spontaneously Psychiatric: Affect normal, cooperative. LAB: All pertinent labs reviewed and interpreted. Labs Ordered and Resulted from Time of ED Arrival to Time of ED Departure BASIC METABOLIC PANEL - Abnormal Result Value Sodium 140 Potassium 4.4 Chloride 105 Carbon Dioxide (CO2) 24 Anion Gap 11 Urea Nitrogen 19.1 Creatinine 0.71 GFR Estimate >90 Calcium 9.4 Glucose 103 (*) HCG QUANTITATIVE - Abnormal hCG Quantitative 58 (*) CBC WITH PLATELETS - Normal WBC Count 8.8 RBC Count 5.00 Hemoglobin 14.1 Hematocrit 42.0 MCV 84 MCH 28.2 MCHC 33.6 RDW 12.1 Platelet Count 351 TYPE AND SCREEN, ADULT ABO/RH(D) A POS Antibody Screen Negative SPECIMEN EXPIRATION DATE [id number] ABO/RH TYPE AND SCREEN RADIOLOGY: US OB <14 Weeks W Transvaginal (Results Pending) I, Mikhail Braun, am serving as a scribe to document services personally performed by Dr. Boris Lock based on my observation and the provider's statements to me. IBoris M.D. attest thatMikhail Braun is acting in a scribe capacity, has observed my performance of the services and has documented them in accordance with my direction. Boris Lock M.D. Emergency Medicine [facility] EMERGENCY DEPARTMENT [facility] [address] Dept: [phone] Boris Lock MD 06/20/232107 D RECORDER documented in this encounter Plan of Treatment Not on file documented as of this encounter Procedures Procedure Name Priority Date/Time Associated Diagnosis Comments US OB <14 WEEKS WITH TRANSVAGINAL SINGLE STAT 06/20/2023 9:08 PM FIELD RECORDER TYPE AND SCREEN, ADULT STAT 06/20/2023 5:51 PM FIELD RECORDER HCG QUANTITATIVE STAT 06/20/2023 5:51 PM FIELD RECORDER ABO/RH TYPE AND SCREEN STAT 06/20/2023 5:51 PM FIELD RECORDER BASIC METABOLIC PANEL STAT 06/20/2023 5:51 PM FIELD RECORDER CBC WITH PLATELETS STAT 06/20/2023 5: 51 PM FIELD RECORDER documented in this encounter Results * US OB <14 Weeks W Transvaginal (06/20/2023 9:08 PM FIELD RECORDER) Anatomical Region Laterality Modality Abdomen/Pelvis Ultrasound 06/20/2023 9:08 PM FIELD RECORDER Impressions 06/20/2023 9:27 PM FIELD RECORDER IMPRESSION: 1. ??Sonographic findings most consistent with left sided ectopic . Critical Result: Suspected ectopic Finding was identified on 06/20/2023 9:23 PM FIELD RECORDER. Alix Lock M.D. was contacted by me on 06/20/2023 9:23 PM FIELD RECORDER and verbalized understanding of the critical result. Narrative 06/20/2023 9:27 PM FIELD RECORDER EXAM: US OB <14 WEEKS WITH TRANSVAGINAL SINGLE LOCATION: [facility] DATE: 06/20/2023 INDICATION: 5 wks with lower [...] OB <14 WEEKS WITH TRANSVAGINAL SINGLE LOCATION: [facility] DATE: 06/20/2023 INDICATION: 5 wks with lower [...] Finding was identified on 06/20/2023 9:23 PM FIELD RECORDER. Alix Lock M.D. was contacted by me on 06/20/2023 9:23 PM CSTand verbalized understanding of the critical result. Boris Lock MD [facility] US ORDERABLES * Adult Type and Screen (06/20/2023 5:51 PM FIELD RECORDER) ABO/RH(D) A POS 06/20/2023 5:45 PM FIELD RECORDER [facility]OD [facility] Antibody Screen Negative Negative 06/20/2023 5:45 PM FIELD RECORDER [facility] SPECIMEN EXPIRATION DATE [id number] 06/20/2023 5:45 PM FIELD RECORDER [facility] Blood BLOOD SPECIMEN / Unknown Venipuncture / Unknown 06/20/2023 5:51 PM FIELD RECORDER 06/20/2023 5:55 PM FIELD RECORDER Amairani Arenas MD LAB - BLOOD BANK BORIS T ORDER [facility] [address] * (ABNORMAL) HCG quantitative (blood) (06/20/2023 5:51 PM FIELD RECORDER) hCG Quantitative 58(H) <5 mIU/mL 06/20/19 6:31 PM FIELD RECORDER [facility] Comment: Adult: 0-5 mIU/mL for healthy non- person Neonates: Should be within normal ranges by 2 days after Blood BLOOD SPECIMEN / Unknown Venipuncture / Unknown 06/20/2023 5:51 PM FIELD RECORDER 06/20/2023 5:55 PM FIELD RECORDER Amairani Arenas MD LAB - BLOOD ORDERABL ES N LABORATORY [facility] [address] [place] [address], [facility] [phone] * (ABNORMAL) Basic metabolic panel (06/20/2023 5:51 PM FIELD RECORDER) Sodium 140 135 - 145 mmol/L 06/20/2023 6:31 PM [facility] Comment:Reference intervals for this test were updated on 01/17/2023 to more accurately reflect our healthy population. There may be differences in the flagging of prior results with similar values performed with this method. Interpretation of those prior results can be made in the context of the updated reference intervals. Potassium 4.4 3.4 - 5.3 mmol/L 06/20/2023 6:31 PM [facility] Chloride 105 98 - 107 mmol/L 06/20/2023 6:31 PM [facility] Carbon Dioxide (CO2) 24 22 - 29 mmol/L 06/20/2023 6:31 PM [facility] Anion Gap 11 7 - 15 mmol/L 06/20/2023 6:31 PM [facility] Urea Nitrogen 19.1 6.0 - 20.0 mg/dL 06/20/2023 6:31 PM [facility] Creatinine 0.71 0.51 - 0.95 mg/dL 06/20/2023 6:31 PM [facility] GFR Estimate >90 >60 mL/min/1. 73m2 06/20/2023 6:31 PM [facility] Calcium 9.4 8.6 - 10.0 mg/dL 06/20/2023 6:31 PM [facility] Glucose 103(H) 70 - 99 mg/dL 06/20/2023 6:31 PM [facility] Blood BLOOD SPECIMEN / Unknown Venipuncture / Unknown 06/20/2023 5:51 PM FIELD RECORDER 06/20/2023 5:55 PM FIELD RECORDER Amairani Arenas MD LAB - BLOOD ORDERABL ES [facility] [address] [place] [address], [facility] [phone] * CBC (+ platelets, no diff) (06/20/2023 5:51 PM FIELD RECORDER) WBC Count 8.8 4.0 - 11.0 10e3/uL 06/20/2023 6:01 PM FIELD RECORDER [facility] RBC Count 5.00 3.80 - 5.20 10e6/uL 06/20/2023 6:01 PM FIELD RECORDER [facility] Hemoglobin 14.1 11.7 - 15.7 g/dL 06/20/2023 6:01 PM FIELD RECORDER [facility] Hematocrit 42.0 35.0 - 47.0 % 06/20/2023 6:01 PM FIELD RECORDER [facility] MCV 84 78 - 100 fL 06/20/2023 6:01 PM FIELD RECORDER [facility] MCH 28.2 26.5 - 33.0 pg 06/20/2023 6:01 PM FIELD RECORDER [facility] MCHC 33.6 31.5 - 36.5 g/dL 06/20/2023 6:01 PM [facility] RDW 12.1 10.0 - 15.0 % 06/20/2023 6:01 PM FIELD RECORDER [facility] Platelet Count 351 150 - 450 10e3/uL 06/20/2023 6:01 PM [facility] Blood BLOOD SPECIMEN / Unknown Venipuncture / Unknown 06/20/2023 5:51 PM FIELD RECORDER 06/20/2023 5:55 PM FIELD RECORDER Amairani Arenas MD LAB - BLOOD ORDERABL ES Performing Organization Address [facility]/ZIP Co de Phone Number N LABORATORY [facility] [address] [place] [address], [facility] [phone] documented in this encounter Visit Diagnoses Diagnosis Ectopic , unspecified location, unspecified whether intrauterine present documented in this encounter Care Teams Flying Teacher Relationship Specialty Start Date End Date No Ref-Primary, Physician PCP - General 06/20/23 documented as of this encounter
--- OUTSIDE RECORDS SUMMARY | 2023-08-18 15:16 | XMS_ITS | Clinical Summary ---
Author Name Unknown Organization [employer] [facility] [employer] Address [place], [place] [address] Care Team Providers Care Freight Car Inspector Name Role Phone Ling Marlow MD Primary Care Provider Allergies Active Allergy Reactions Criticality Noted Date Comments Amoxicillin Rash,Fever 04/05/2021 Sulfa (Sulfonamide Antibiotics) Rash 03/24 Medications Medication Sig Dispensed Refills Start Date End Date Status vit/iron fum/folic ac ( 1 + 1 ORAL) Take by mouth. Active [id number] 1.5 mg iron- 8.73 mg CpID Take by mouth. Active cholecalciferol, vitamin D3, (Vitamin D3) 100 mcg (4,000 unit) cap Take by mouth. Active acetaminophen (TYLENOL) 325 mg tablet Take 1-2 Tablets (325-650 mg) by mouth every 4 hours if needed (mild pain). Max acetaminophen dose: 4000mg in 24 hrs. 100 Tablet 04/06/2021 Active ibuprofen (Motrin IB) 200 mg tablet Take 1-3 Tablets (200-600 mg) by mouth every 6 hours if needed (for uterine cramping). Take with food. 100 Tablet 04/06/2021 Active Breast Pump PurchaseIndication s:Care and examination of lactating mother Electric breast pump for home use. Gestational age at delivery: 40 weeks. Reason for need: problem. Length of need: 99 months (lifetime use) 1 Each 04/06/2021 Active Breast Pump PurchaseIndication s:Care and examination of lactating mother Electric breast pump for home use. Gestational age at delivery: 41 weeks. Reason for need: Care of lactating mother. Length of need: 99 months (lifetime use) 1 Each 10/13/2022 Active Active Problems Problem Noted Date [...] Francisca Dang MD Complications:None Delivery Location:Hospital ( [facility] [address] L&D TRIAGE) 10/12 Term 41w 2d 16h 27m 15h 36m/0h 46m/0h 05m 3.74 kg (8 lb 3.9 oz) F Vag-Spont Epidu ral Amira ng 8 9 SIRBA ,BG Francisca Dang MD Complications:None Delivery Location:Hospital ( [facility] [address] L&D TRIAGE) Last Filed [...] Health Maintenance Due Date Last Done Comments Tdap 2004 Depression screening for age 12+ 2005 BMI (ht and wt on same day) for age 18+ 08/03/2011 Hepatitis C screening for ag e 18-79 08/03/2011 Tetanus booster 2013 Pap test for age 21-65 2014 COVID-19 vaccine series (2022- season) 2022 Influenza for age 9-49 12/24/2023 HIV for age 15-65 Completed 04/05/2022 Pneumococcal series for age 6-64 Aged Out No longer eligible based on patient's age to complete this topic Procedures Procedure Name Priority Date/Time Associated Diagnosis Comments HIV EXTERNAL Routine 04/05/2022 from Last 3 Months or Most Recently Relevant to Health Maintenance Results * HIV EXTERNAL (04/05/2022) EXTERNAL HIV Negative [facility] Blood BLOOD SPECIMEN / Unknown Ling Marlow MD LABOR ATORY [facility] [address] [place], [place] [phone] from Last 3 Months or Most Recently Relevant to Health Maintenance Advance Directives * Full Code (Latest Code Status on File) Date Activated Date Inactivated Comments 10/12/2022 4:00 AM 10/13/2022 1:52 PM Question Answer Comments Code Status Discussion: Other * Full Code Date Activated Date Inactivated Comments 04/05/2021 10:31 AM 04/06/2021 3:49 PM Question Answer Comments Code Status Discussion: Other Care Teams Freight Car Inspector Relationship Specialty Start Date End Date Ling Marlow MD [address] [place] [address] PCP - General Family Practice 03/10/21
--- OUTSIDE RECORDS SUMMARY | 2023-08-18 15:16 | XMS_ITS | Encounter Summary ---
Author Name Unknown Organization [place] Address [facility] [place] [address] Care Team Providers Care Writer Editor Name Role Phone Unavailable Primary Care Provider Unavailabl e Encounter Details Date Type Department Care Team (Late st Contact Info) Description 06/17/2023 10:15 AM FRUIT BAR MAKER Lab [facility] [place] [address] Ectopic (Primary Dx) Social History Tobacco Use Types Packs/Day Years Used Date Smoking Tobacco: Never Assessed Adolescent Education Answer Date Record ed Getting School Help Needed Not on file 06/17 Sex and Gender Information Value Date Recorded Sex Assigned at Not on file Gender Identity Not on file Sexual Orientation Not on file documented as of this encounter Plan of Treatment Not on file documented as of this encounter Procedures Procedure Name Priority Date/Time Associated Diagnosis Comments HCG QUANTITATIVE STAT 06/17/2023 10:19 AM FRUIT BAR MAKER Ectopic documented in this encounter Results * (ABNORMAL) hCG Quantitative (06/17/2023 10:19 AM FRUIT BAR MAKER) hCG Quantitative 234(H) <5 mIU/mL 06/17/19 10:53 AM FRUIT BAR MAKER [facility] Comment: Adult: 0-5 mIU/mL for healthy non- person Neonates: Should be within normal ranges by 2 days after Blood STRUCTURE OF LEFT UPPER LIMB / Unknown Venipuncture / Unknown 06/17/2023 10:19 AM FRUIT BAR MAKER 06/17/2023 10:21 AM FRUIT BAR MAKER Ling Marlow MD LAB - BLOOD ORD ERABLES N LABORATORY [facility] [address] [place], [place] [address] [phone] documented in this encounter Visit Diagnoses Diagnosis Ectopic - Primary documented in this encounter
--- OUTSIDE RECORDS SUMMARY | 2023-08-18 15:16 | XMS_ITS | Encounter Summary ---
Author Name Unknown Organization [place] Address [facility] [place] [address] Care Team Providers Care [employer] Certified Network Professional Name Role Phone Unavailable Primary Care Provider Unavailabl e Encounter Details Date Type Department Care Team (Latest Contact Info) Description 06/17/2023 Travel Social History Tobacco Use Types Packs/Day [...]
[2023-08-18 16:10] LABS: HCG Quantitative* < 2.39 mIU/mL
== END 2023-08-18 15:13 | disposition home or self-care (01) ==
LOC: LAB 15:14
PROVIDERS: Visit Provider Family Medicine
DX: N93.9 Abnormal uterine and vaginal bleeding, unspecified (principal)
CPT/HCPCS: 36415; 84702

== ENCOUNTER 2023-12-05 21:29 | Emergency (ER) | payer OTHER, SELFPAY ==
[2023-12-05 21:34] VITALS: BP 103/67; PULSE 81; RESP 18; TEMP 36.3; O2SAT 100; BMI 20.3
--- NOTE | 2023-12-05 21:58 | ED_ITS ---
HPI - General Adult General Date Seen: 12/05/23 Chief complaint: Nausea/Vomiting Stated complaint: 10 weeks , dehydration Time Seen by Provider: 12/05/23 21:50 History of Present Illness HPI narrative: This is a pleasant 28-year-old female who is , currently about 10 weeks who presents to the ER today on the advice her grating machine operator for evaluation and treatment of dehydration from nausea and vomiting. She recalls that she had significant troubles with nausea and vomiting during her 1st 2 pregnancies. She had been doing pretty well with this was some mild nausea but a few days ago symptoms got worse and she has had more protracted nausea and vomiting for the past few days. No bloody emesis. No diarrhea. She started to feel like she is having decreased urine output. She is feeling dehydrated. On the advice of her doctor she came here to the ER to get IV fluids. With her previous she has used nausea medicines to some benefit but has not had any nausea medicines yet for this . Her OB doctor is through clinic in [place]. She plans to deliver at the [facility]. She has had no other problems with this . No vaginal bleeding. No pelvic cramping. No fever or chills. No diarrhea. Related Data Previous Rx's ?Medication ?Instructions ?Recorded ondansetron 4 mg disintegrating 4 mg PO Q8H PRN nausea and 12/05/23 tablet vomiting #10 tabs Allergies Allergy/AdvReac Type Severity Reaction Status Date / Time amoxicillin Allergy Verified 12/05/23 21:38 [facility] Social History Smoking Status: Never smoker How often do you have a drink containing alcohol: never AUDIT-C Alcohol total score: 0 Non-prescribed substance use: denies use service: No Exam Narrative: Exam Narrative: Constitutional: Appears well-developed and well-nourished. Alert. Conversant. Non toxic. HENT: Head: Atraumatic. Nose: Nose normal. Mouth/Throat: Oral mucosa is clear but dry, not desiccated or cracked no trismus. Pharynx normal. Tonsils symmetric. No tonsillar enlargement, erythema, or exudate. Eyes: Conjunctivae normal. EOM normal. Pupils equal, round, and reactive to light. No scleral icterus. Neck: Normal range of motion. Neck supple. No tracheal deviation present. Cardiovascular: Normal rate, regular rhythm. No gallop. No friction rub. No murmur heard. Symmetric radial artery pulses Pulmonary/Chest: Effort normal. No stridor. No respiratory distress. No wheezes. No rales. No rhonchi . No tenderness. Abdominal: Soft. Bowel sounds normal. No distension. No mass. No tenderness. No rebound. No guarding. No right upper quadrant tenderness or Ventura sign. No epigastric tenderness no suprapubic tenderness or uterine tenderness. Musculoskeletal: RUE: Normal range of motion. No tenderness. No deformity LUE: Normal range of motion. No tenderness. No deformity RLE: Normal range of motion. No edema. No tenderness. No deformity LLE: Normal range of motion. No edema. No tenderness. No deformity Neurological: Alert and oriented to person, place, and time. Normal strength. CN II-VII intact. No sensory deficit. GCS eye subscore is 4. GCS verbal subscore is 5. GCS motor subscore is 6. Normal coordination Skin: Skin is warm and dry. No rash noted. No pallor. Normal capillary refill. Psychiatric: Normal mood. Normal affect. Const: Vital Signs, click to edit/add: Vital Signs - 24 hr 12/05/23 21:34 Temperature 97.3 F L Pulse Rate [Pulse Oximeter] 81 Respiratory Rate 18 Blood Pressure [Ri ght Upper Arm] 103/67 Pulse Oximetry 100 Oxygen Delivery Me thod Room Air Course Course ED Course: Recheck-feeling better after IV fluids and nausea improving after Zofran. She feels comfortable discharging home. Labs reassuring. Vital Signs Vital signs: Initial Vital Signs Temperature 97.3 F L 12/05/23 21:34 Temperature Source Temporal Artery Scan 12/05/23 21:34 Pulse Rate 81 12/05/23 21:34 Respiratory Rate 18 12/05/23 21:34 Blood Pressure 103/67 12/05/23 21:34 Blood Pressure Mean 79 12/05/23 21:34 Blood Pressure Position Sitting 12/05/23 21:34 Pulse Oximetry 100 12/05/23 21:34 Oxygen Delivery Method Room Air 12/05/23 21:34 Vital Signs Temperature 97.3 F L 12/05/23 21:34 Pulse Rate 81 12/05/23 21:34 Respiratory Rate 18 12/05/23 21:34 Blood Pressure 103/67 12/05/23 21:34 Pulse Oximetry 100 12/05/23 21:34 Oxygen Delivery Method Room Air 12/05/23 21:34 Temperature 97.3 F L 12/05/23 21:34 Pulse Rate 81 12/05/23 21:34 Respiratory Rate 18 12/05/23 21:34 Blood Pressure 103/67 12/05/23 21:34 Pulse Oximetry 100 12/05/23 21:34 Oxygen Delivery Method Room Air 12/05/23 21:34 Medications Administered Medications: Discontinued Medications Generic Name Dose Route Start Last Admin Trade Name Astrid PRN Reason Stop Dose Admin Lactated Ringer's 1,000 ml 12/05/23 22:00 12/05/23 22:14 Lactated Ringers 1000 Ml IV 12/05/23 22:01 1,000 ml ONCE ONE Administration Ondansetron HCl 4 mg 12/05/23 22:43 12/05/23 22:48 Ondansetron 2 Mg/Ml Inj IVP 12/05/23 22:44 4 mg ONCE ONE Administration Medical Decision Making [facility] Narrative Medical decision making narrative: This is a female, currently 10weeks , who presents for evaluation of nausea and vomiting. I considered a broad differential diagnosis for this patient including viral gastroenteritis, bacterial enteritis, food poisoning, bowel obstruction, intra-abdominal infection such as colitis, cholecystitis,appendicitis, among others. There are no signs of worrisome intra- abdominal pathologies detected during the visit today. The patient has a benign abdominal exam without rebound, guarding, or marked tenderness to palpation. No urinary symptoms to suggest UTI or pyelonephritis. She is not having any pelvic pain or vaginal bleeding to suggest miscarriage or ectopic . She is improved after medications and tolerating adequate PO. Supportive outpatient management is therefore indicated. Reviewed return precautions with the patient. It was discussed with the patient to return to the ED for uncontrolled vomiting, weakness, problems with her , blood in stool, increasing pain, or fevers more than 101. Feels much improved after interventions in ED. Jose FINN to use p.r.n. at home. She will follow-up with her OB for from [place] within the next 2-3 days. Suspect symptoms are related to nausea and vomiting with . Lab Data Labs: Lab Results 12/05/23 Range/Units 22:10 Sodium 135 (135-149) mmol/L Potassium 3.8 (3.6-5.1) mmol/L Chloride 104 (96-114) mmol/L Carbon Dioxide 24 (20-32) mmol/L Anion Gap 7 (7-15) mEq/L BUN 10 (5-24) mg/dL Creatinine 0.4 L (0.5-1.5) mg/dL Estimated Creat Clear 173.77 Estimated GFR 136 ml/min Glucose 87 (60-115) mg/dL Calcium 8.7 (8.4-10.6) mg/dL Discharge Plan Discharge Clinical Impression: Nausea and vomiting during , Dehydration Patient Disposition: Home, Self-Care Condition: Stable Instructions: Nausea and Vomiting in (ED), Dehydration (ED) Additional Instructions: As we discussed, please return to the ER right away if you have uncontrolled vomiting, worsening dehydration, weakness or any other problems. Please follow- up with your OB doctor for recheck within the next 2-3 days. Use Zofran if needed for nausea. Try to drink plenty of fluids and take frequent small meals to maintain hydration and nutrition. Prescriptions: New ondansetron 4 mg tablet,disintegrating 4 mg PO Q8H PRN (Reason: nausea and vomiting) Qty: 10 0RF Follow Up/Referrals: Provider,Not a Local [Non-Staff] - Stand Alone Forms: My[facility] Info Instructions
--- OUTSIDE RECORDS SUMMARY | 2023-12-05 22:06 | XMS_ITS | Referral Summary ---
Author Organization [place] Address [facility] [place] [address] Care Team Providers Care Tool Die Maker Name Role Phone No Ref-Primary, Physician Primary [...] Comments Blood Pressure 106/57 06/20/2023 10:40 PM WHARF LABORER Pulse 88 06/20/2023 10:40 PM WHARF LABORER Temperature 37.4 ??C (99.4 ??F) 06/20/2023 5:03 PM CS T Respiratory Rate 16 06/20/2023 5:05 PM WHARF LABORER Oxygen Saturation 96% 06/20/2023 10:40 PM WHARF LABORER Inhaled Oxygen Concentration - - Weight 52.2 kg (115 lb) 06/20/2023 5:03 PM WHARF LABORER Height 162.6 cm (5' 4) 06/20/2023 5:03 PM WHARF LABORER Body Mass Index 19.74 06/20/2023 5:03 PM WHARF LABORER Plan of Treatment Not on file Care Teams Tool Die Maker Relationship Specialty Start Date End Date No Ref-Primary, Physician PCP - General 06/20/23
--- OUTSIDE RECORDS SUMMARY | 2023-12-05 22:06 | XMS_ITS | Clinical Summary ---
Author Organization [place] Address [facility] [place] [address] Care Team Providers Care Force Variation Equipment Tender Name Role Phone No Ref-Primary, Physician Primary [...] Comments Blood Pressure 106/57 06/20/2023 10:40 PM MOTION PICTURE SET GRIP Pulse 88 06/20/2023 10:40 PM MOTION PICTURE SET GRIP Temperature 37.4 ??C (99.4 ??F) 06/20/2023 5:03 PM CS T Respiratory Rate 16 06/20/2023 5:05 PM MOTION PICTURE SET GRIP Oxygen Saturation 96% 06/20/2023 10:40 PM MOTION PICTURE SET GRIP Inhaled Oxygen Concentration - - Weight 52.2 kg (115 lb) 06/20/2023 5:03 PM MOTION PICTURE SET GRIP Height 162.6 cm (5' 4) 06/20/2023 5:03 PM MOTION PICTURE SET GRIP Body Mass Index 19.74 06/20/2023 5:03 PM MOTION PICTURE SET GRIP Plan of Treatment Health Maintenance Due Date Last Done Comments ADVANCE CARE PLANNING 1993 ANNUAL REVIEW OF HM ORDERS 1993 YEARLY PREVENTIVE VISIT 1993 HIV SCREENING 2008 HEPATITIS C SCREENING 08/03/2011 HEPATITIS B IMMUNIZATION (1 of 3 - 19+ 3-dose series) 2012 PAP 2014 DTAP/TDAP/TD IMMUNIZATION (1 - Tdap) 2018 COVID-19 Vaccine (1 - 2022-2 4 season) 2022 PHQ-2 (once per calendar year) 2023 INFLUENZA VACCINE (#1) 2023 RSV VACCINE ( & 60+ ) [...] on patient's age to complete this topic Care Teams Force Variation Equipment Tender Relationship Specialty Start Date End Date No Ref-Primary, Physician PCP - General 06/20/23
--- OUTSIDE RECORDS SUMMARY | 2023-12-05 22:06 | XMS_ITS | Clinical Summary ---
Author Organization [employer] [facility] Address [place], [place] [address] Care Team Providers Care Production Or Plant Engineer Name Role Phone Ling Marlow MD Primary Care Provider Allergies Active Allergy Reactions Criticality Noted Date Comments Amoxicillin Rash,Fever 04/05/2021 Sulfa (Sulfonamide Antibiotics) Rash 03/24 Medications Medication Sig Dispensed Refills Start Date End Date Status vit/iron fum/folic ac ( 1 + 1 ORAL) Take by mouth. Active [id number] 1.5 mg iron- 8.73 mg CpID Take [...] Outcome GA Total Labor Labor/2nd/3rd Weight Sex Type Anes PTL Antonia A1 A5 Name Clin 2020 Term 40w 0d 14h 34m 13h 46m/0h 41m/0h 07m 3.14 kg (6 lb 14.8 oz) M Vag Epidur al,Loc al Livin g 8 9 SIRBA, BB EBEN swann , Francisca pedersen MD Complications:None Delivery Location:Hospital ( [facility] [address] MB L&D TRIAGE) 2022 Term 41w 2d 16h 27m 15h 36m/0h 46m/0h 05m 3.74 kg (8 lb 3.9 oz) F Vag-S pont Epidur al Livin g 8 9 SIRBA, BG Francisca Simeon MD Complications:None Delivery Location:Hospital ( [facility] 1999 MB L&D TRIAGE) Last Filed Vital Signs [...] Ling Marlow MD LABOR ATORY [facility] [address] [place], [place] [id number] from Last 3 Months or Most Recently Relevant to Health Maintenance Advance Directives * Full Code (Latest Code Status on File) Date Activated Date Inactivated Comments 10/12/2022 4:00 AM 10/13/2022 1:52 PM Question Answer Comments Code Status Discussion: Other * Full Code Date Activated Date Inactivated Comments 04/05/2021 10:31 AM 04/06/2021 3:49 PM Question Answer Comments Code Status Discussion: Other Care Teams Production Or Plant Engineer Relationship Specialty Start Date End Date Ling Marlow MD [address] [place] [address] PCP - General Family Practice 03/10/21
[2023-12-05] MEDS: LACTATED RINGERS 1000 ML IV (22:14)
[2023-12-05 22:29] LABS: Chloride* 104 mmol/L (96-114)
[2023-12-05 22:30] LABS: Potassium* 3.8 mmol/L (3.6-5.1); Sodium* 135 mmol/L (135-149)
[2023-12-05 22:32] LABS: Creatinine* 0.4 mg/dL (0.5-1.5); Est. Creatinine Clearance* 173.77; Estimated Glomerular Filt Rate 136 ml/min
[2023-12-05 22:33] LABS: Anion Gap 7 mEq/L (7-15); Blood Urea Nitrogen* 10 mg/dL (5-24); Calcium* 8.7 mg/dL (8.4-10.6); Carbon Dioxide* 24 mmol/L (20-32); Glucose* 87 mg/dL (60-115)
[2023-12-05] MEDS: ONDANSETRON 2 MG/ML inj 4 MG IVP (22:48)
== END 2023-12-05 23:34 | disposition home or self-care (01) ==
PROVIDERS: Emergency Provider Emergency Medicine; PCP Family Medicine
DX: R11.2 Nausea with vomiting, unspecified (principal); Z3A.10 10 weeks gestation of pregnancy; E86.0 Dehydration
CPT/HCPCS: 36415; 80048; 96374; 99282; 99283; J2405; J7120

== ENCOUNTER 2023-12-08 11:42 | Emergency (ER) | payer OTHER, SELFPAY ==
[2023-12-08 12:02] VITALS: BP 96/61; PULSE 96; RESP 18; TEMP 36.4; O2SAT 98; BMI 20.3
--- NOTE | 2023-12-08 12:26 | ED_ITS ---
HPI - Nausea/Vomiting/Diarrhea General Date Seen: 12/08/23 Chief complaint: Nausea/Vomiting Stated complaint: vomiting/dizzy/nausea - 10 wks preg Time Seen by Provider: 12/08/23 11:46 Source: patient Mode of arrival: ambulatory Limitations: no limitations History of Present Illness HPI Narrative: Patient is a 28-year-old female A1 presenting to the emergency department for nausea and vomiting and currently 10 weeks . Intrauterine was seen on ultrasound 2 weeks ago at outside facility. Does have a history of ectopic . States she has been having of issues with nausea and vomiting for the past week. She is initially seen in the emergency department 3 days ago and was given fluids and Zofran. She states that helped but then symptoms returned the next day. She spoke to her OB Gyne up in [place] and told to try vitamin B6 and Unisom 1st. That did not work so her OB Gyne prescribed her Zofran. Patient has not been able to pick of the Zofran yet that she is becoming very nauseated again can came to the emergency department for concern of dehydration. States she has not been able to keep anything down. Denies fevers, chills, chest pain, shortness of breath, abdominal pain, diarrhea, constipation, vaginal bleeding, vaginal discharge, weakness. Does states she does feel slightly fatigued and gets dizzy with ambulation. Dizziness improves when she is at rest. Has a history of hyperemesis gravidarum with previous pregnancies Related Data Previous Rx's ?Medication ?Instructions ?Recorded ondansetron 4 mg disintegrating 4 mg PO Q8H PRN nausea and 12/05/23 tablet vomiting #10 tabs Allergies Allergy/AdvReac Type Severity Reaction Status Date / Time amoxicillin Allergy Verified 12/08/23 12:02 Review of Systems Status of ROS: Reports: 10 or more systems reviewed and unremarkable except as noted in History and below PFSH PFS Social History Smoking Status: Never smoker How often do you have a drink containing alcohol: never AUDIT-C Alcohol total score: 0 Non-prescribed substance use: denies use service: No Exam Narrative: Exam Narrative: Const: Well-nourished, Well-developed, in mild distress Eyes: PERRL, no conjunctival injection, and symmetrical lids HENT: Atraumatic external nose and ears. Moist mucous membranes. Neck: Symmetric, trachea midline, No thyromegaly. CVS: RRR, No murmurs or gallops. Peripheral pulses 2+ and equal in all extremities RESP: Unlabored respiratory effort. Clear to auscultation bilaterally. GI: Nontender/Nondistended, No rebound or guarding. MSK:Extremities w/o deformity, Normal Active ROM Skin: Warm, Dry. No rashes or lesions. Neuro: Normal Muscle tone, No focal neurological deficits. Psych: Awake, Alert, & Oriented x3. Appropriate mood and affect. Const: Vital Signs, click to edit/add: Vital Signs - 24 hr 12/08/23 12:02 12/08/23 13:04 12/08/23 13:32 Temperature 97.6 F Pulse Rate 78 77 Pulse Rate [Pulse Oximeter] 96 Respiratory Rate 18 16 16 Blood Pressure 98/64 99/60 Blood Pressure [Ri ght Upper Arm] 96/61 Pulse Oximetry 98 100 100 Oxygen Delivery Me thod Room Air Course Vital Signs Vital signs: Initial Vital Signs Temperature 97.6 F 12/08/23 12:02 Temperature Source Temporal Artery Scan 12/08/23 12:02 Pulse Rate 96 12/08/23 12:02 Pulse Rhythm Regular 12/08/23 12:02 Respiratory Rate 18 12/08/23 12:02 Blood Pressure 96/61 12/08/23 12:02 Blood Pressure Mean 72 12/08/23 12:02 Blood Pressure Position Sitting 12/08/23 12:02 Pulse Oximetry 98 12/08/23 12:02 Oxygen Delivery Method Room Air 12/08/23 12:02 Vital Signs Temperature 97.6 F 12/08/23 12:02 Pulse Rate 96 12/08/23 12:02 Respiratory Rate 18 12/08/23 12:02 Blood Pressure 96/61 12/08/23 12:02 Pulse Oximetry 98 12/08/23 12:02 Oxygen Delivery Method Room Air 12/08/23 12:02 Temperature 97.6 F 12/08/23 12:02 Pulse Rate 77 12/08/23 13:32 Respiratory Rate 16 12/08/23 13:32 Blood Pressure 99/60 12/08/23 13:32 Pulse Oximetry 100 12/08/23 13:32 Oxygen Delivery Method Room Air 12/08/23 12:02 Medications Administered Medications: Discontinued Medications Generic Name Dose Route Start Last Admin Trade Name Astrid PRN Reason Stop Dose Admin Lactated Ringer's 1,000 mls @ 1,000 mls/hr 12/08/23 12:18 12/08/23 13:22 Lactated Ringers 1000 Ml IV 12/08/23 13:17 Infused .Q1H ONE Infusion Lactated Ringer's 1,000 mls @ 1,000 mls/hr 12/08/23 13:15 12/08/23 13:20 Lactated Ringers 1000 Ml IV 12/08/23 14:14 1,000 mls/hr .Q1H ONE Administration Ondansetron HCl 4 mg 12/08/23 12:18 12/08/23 12:32 Ondansetron 2 Mg/Ml Inj IVP 12/08/23 12:19 4 mg ONCE ONE Administration MDM - Nausea/Vomiting/Diarrhea MDM Narrative Medical decision making narrative: Patient is a 28 year old female presenting to the emergency department for hyperemesis gravidarum. Will check labs to look for abnormal electrolyte issues and also do urinalysis. Patient given L of fluids along with Zofran. CBC and CMP showed no concerning abnormalities. Urinalysis shows +4 ketones consistent with her dehydration. She is feeling better after the 1 L and Zofran but I will give her a 2 L to make sure she is well hydrated. She is agreeable to this. She finish the 2 L of fluids in feeling well. Will be discharged at this time and she is agreeable to this plan. She will follow-up with her Ob outpatient Lab Data Labs: Lab Results 12/08/23 12/08/23 Range/Units 12:25 12:30 WBC 9.40 (4.50-11.00) K/uL RBC 4.71 (4.00-5.20) m/uL Hgb 13.6 (12.0-16.0) gm/dL Hct 40.3 (33.0-51.0) % MCV 86 (80-100) fL MCH 29 (26-34) pg MCHC 34 (32-36) gm/dL RDW Coeff of Marcy 12.1 (11.5-15.5) % Plt Count 264 (140-440) K/uL Neut % (Auto) 83.1 H (42.0-72.0) % Lymph % (Auto) 13.4 L (20-44) % [place] % (Auto) 3.0 (0.0-11.0) % Eos % (Auto) 0.2 (0.0-7.0) % Baso % (Auto) 0.2 (0.0-3.0) % Neut # (Auto) 7.80 H (1.7-7.0) K/uL Lymph # (Auto) 1.30 (0.90-2.90) K/uL [place] # (Auto) 0.30 (0.00-0.90) K/UL Eos # (Auto) 0.02 (0.00-0.50) K/uL Baso # (Auto) 0.02 (0.00-0.30) K/uL Abs Immat Gran (auto) 0.01 (0.00-0.30) K/uL Imm/Tot Granulo (auto) 0.1 % Sodium 136 (135-149) mmol/L Potassium 3.6 (3.6-5.1) mmol/L Chloride 104 (96-114) mmol/L Carbon Dioxide 19 L (20-32) mmol/L Anion Gap 13 (7-15) mEq/L BUN 14 (5-24) mg/dL Creatinine 0.5 (0.5-1.5) mg/dL Estimated Creat Clear 139.01 Estimated GFR 129 ml/min Glucose 74 (60-115) mg/dL Calcium 9.3 (8.4-10.6) mg/dL Magnesium 1.9 (1.5-2.6) mg/dL Total Bilirubin 1.0 (0.1-1.5) mg/dL AST 25 (12-35) U/L ALT 16 (4-35) U/L Alkaline Phosphatase 62 (40-150) U/L Total Protein 7.8 (6.0-8.3) g/dL Albumin 4.8 (3.3-5.0) g/dL Urine Color Yellow (Yellow) Urine Appearance Clear (Clear) Urine pH 5.5 (5.0-8.5) Ur Specific [place] >= 1.030 (1.000-1.030) Urine Protein 1+ A (Negative) Urine Glucose (UA) Negative (Negative) Urine Ketones 4+ A (Negative) Urine Blood Trace-intact A (Negative) Urine Nitrite Negative (Negative) Urine Bilirubin Negative (Negative) Urine Urobilinogen 0.2 (0.2-1.0) Ur Leukocyte Esterase Negative (Negative) Urine RBC 0-2 (0-2) Urine WBC 2-5 (0-5) Ur Squamous Epith Cells Few (None-Few) Urine Bacteria Few A (None) Urine Mucus Moderate A (None) Discharge Plan Discharge Clinical Impression: Hyperemesis gravidarum Patient Disposition: Home, Self-Care Condition: Improved Instructions: Hyperemesis Gravidarum (ED) Additional Instructions: Make sure to picker and sorter load and unload your Zofran prescription and follow-up with the Ob. Return to emergency department for new or worsening symptoms. Prescriptions: No Action ondansetron 4 mg tablet,disintegrating 4 mg PO Q8H PRN (Reason: nausea and vomiting) Qty: 10 0RF Follow Up/Referrals: Ling Marlow MD [Primary Care Provider] - Stand Alone Forms: [employer] Info Instructions
[2023-12-08 12:31] LABS: Appearance Urine Clear (Clear); Bilirubin Urine Negative (Negative); Blood Urine Trace-intact (Negative); Color Urine Yellow (Yellow); Glucose Urine Negative (Negative); Ketones Urine 4+ (Negative); Leukocyte Esterase Urine Negative (Negative); Nitrite Urine Negative (Negative); Protein Urine 1+ (Negative); Specific Gravity Urine >= 1.030 (1.000-1.030); Urobilinogen Urine 0.2 (0.2-1.0); pH Urine 5.5 (5.0-8.5)
[2023-12-08] MEDS: ONDANSETRON 2 MG/ML inj 4 MG IVP (12:32)
[2023-12-08] MEDS: LACTATED RINGERS 1000 ML 1,000 ML IV ×2 (12:32→13:20)
--- OUTSIDE RECORDS SUMMARY | 2023-12-08 12:40 | XMS_ITS | Clinical Summary ---
Author Organization [place] Address [facility] [place] [address] Care Team Providers Care Service Mechanic Name Role Phone No Ref-Primary, Physician Primary [...] Comments Blood Pressure 106/57 06/20/2023 10:40 PM CREDIT NEGOTIATOR Pulse 88 06/20/2023 10:40 PM CREDIT NEGOTIATOR Temperature 37.4 ??C (99.4 ??F) 06/20/2023 5:03 PM CS T Respiratory Rate 16 06/20/2023 5:05 PM CREDIT NEGOTIATOR Oxygen Saturation 96% 06/20/2023 10:40 PM CREDIT NEGOTIATOR Inhaled Oxygen Concentration - - Weight 52.2 kg (115 lb) 06/20/2023 5:03 PM CREDIT NEGOTIATOR Height 162.6 cm (5' 4) 06/20/2023 5:03 PM CREDIT NEGOTIATOR Body Mass Index 19.74 06/20/2023 5:03 PM CREDIT NEGOTIATOR Plan of Treatment Health Maintenance Due Date [...] age to complete this topic Care Teams Service Mechanic Relationship Specialty Start Date End Date No Ref-Primary, Physician PCP - General 06/20/23
--- OUTSIDE RECORDS SUMMARY | 2023-12-08 12:40 | XMS_ITS | Referral Summary ---
Author Organization [place] Address [facility] [place] [address] Care Team Providers Care Product Operations Associate Name Role Phone No Ref-Primary, Physician Primary [...] Comments Blood Pressure 106/57 06/20/2023 10:40 PM RESEARCH GENETICIST Pulse 88 06/20/2023 10:40 PM RESEARCH GENETICIST Temperature 37.4 ??C (99.4 ??F) 06/20/2023 5:03 PM CS T Respiratory Rate 16 06/20/2023 5:05 PM RESEARCH GENETICIST Oxygen Saturation 96% 06/20/2023 10:40 PM RESEARCH GENETICIST Inhaled Oxygen Concentration - - Weight 52.2 kg (115 lb) 06/20/2023 5:03 PM RESEARCH GENETICIST Height 162.6 cm (5' 4) 06/20/2023 5:03 PM RESEARCH GENETICIST Body Mass Index 19.74 06/20/2023 5:03 PM RESEARCH GENETICIST Plan of Treatment Not on file Care Teams Product Operations Associate Relationship Specialty Start Date End Date No Ref-Primary, Physician PCP - General 06/20/23
--- OUTSIDE RECORDS SUMMARY | 2023-12-08 12:40 | XMS_ITS | Clinical Summary ---
Author Organization [employer] [facility] Address [place], [place] [address] Care Team Providers Care Table Inspector Name Role Phone Ling Marlow MD Primary Care Provider Allergies Active Allergy Reactions Criticality Noted Date Comments Amoxicillin Rash,Fever 04/05/2021 Sulfa (Sulfonamide Antibiotics) Rash 03/24 Medications Medication Sig Dispensed Refills Start Date End Date Status vit/iron fum/folic ac ( 1 + 1 ORAL) Take by mouth. Active [id number]-LR-tjs-epa-FA [id number]-mv 1.5 mg iron- 8.73 mg CpID Take [...] Francisca pedersen MD Complications:None Delivery Location:Hospital ( [facility] [address] L&D TRIAGE) 2022 Term 41w 2d 16h 27m 15h 36m/0h 46m/0h 05m 3.74 kg (8 lb 3.9 oz) F Vag-S pont Epidur al Livin g 8 9 SIRBA, BG Francisca Simeon MD Complications:None Delivery Location:Hospital ( [facility] [address] L&D TRIAGE) Last Filed Vital [...] Ling Marlow MD LABOR ATORY [facility] [address] [place], [place] [id number] from Last 3 Months or Most Recently Relevant to Health Maintenance Advance Directives * Full Code (Latest Code Status on File) Date Activated Date Inactivated Comments 10/12/2022 4:00 AM 10/13/2022 1:52 PM Question Answer Comments Code Status Discussion: Other * Full Code Date Activated Date Inactivated Comments 04/05/2021 10:31 AM 04/06/2021 3:49 PM Question Answer Comments Code Status Discussion: Other Care Teams Table Inspector Relationship Specialty Start Date End Date Ling Marlow MD [address] [place] [address] PCP - General Family Practice 03/10/21
[2023-12-08 12:45] LABS: Basophils Absolute Auto 0.02 K/uL (0.00-0.30); Basophils Percent Auto 0.2 % (0.0-3.0); Eosinophils Absolute Auto 0.02 K/uL (0.00-0.50); Eosinophils Percent Auto 0.2 % (0.0-7.0); Hematocrit 40.3 % (33.0-51.0); Hemoglobin* 13.6 gm/dL (12.0-16.0); Immature Granulocytes Abs Auto 0.01 K/uL (0.00-0.30); Immature Granulocytes Pct Auto 0.1 %; Lymphocytes Percent Auto 13.4 % (20-44); Mean Corpuscular HGB Conc 34 gm/dL (32-36); Mean Corpuscular Hemoglobin 29 pg (26-34); Mean Corpuscular Volume 86 fL (80-100); Neutrophils Percent Auto 83.1 % (42.0-72.0); Platelet Count* 264 K/uL (140-440); RDW Coefficient of Variation % 12.1 % (11.5-15.5); Red Blood Count 4.71 m/uL (4.00-5.20)
[2023-12-08 12:56] LABS: Albumin* 4.8 g/dL (3.3-5.0); Chloride* 104 mmol/L (96-114); Potassium* 3.6 mmol/L (3.6-5.1); Slide Review Reflex No; Sodium* 136 mmol/L (135-149)
[2023-12-08 12:58] LABS: Magnesium* 1.9 mg/dL (1.5-2.6)
[2023-12-08 12:59] LABS: Bacteria Urine Few; Mucus Urine Moderate; RBC Urine 0-2 (0-2); Squamous Epithelial Cell Urine Few (None-Few)
[2023-12-08 13:03] LABS: Anion Gap 13 mEq/L (7-15); Blood Urea Nitrogen* 14 mg/dL (5-24); Carbon Dioxide* 19 mmol/L (20-32); Creatinine* 0.5 mg/dL (0.5-1.5); Est. Creatinine Clearance* 139.01; Estimated Glomerular Filt Rate 129 ml/min
[2023-12-08 13:04] VITALS: BP 98/64; PULSE 78; RESP 16; O2SAT 100
[2023-12-08 13:04] LABS: Alanine Aminotransferase* 16 U/L (4-35); Alkaline Phosphatase* 62 U/L (40-150); Aspartate Amino Transferase* 25 U/L (12-35); Calcium* 9.3 mg/dL (8.4-10.6); Glucose* 74 mg/dL (60-115); Total Protein* 7.8 g/dL (6.0-8.3)
[2023-12-08 13:32] VITALS: BP 99/60; PULSE 77; RESP 16; O2SAT 100
[2023-12-08 14:02] VITALS: BP 98/60; PULSE 69; RESP 16; O2SAT 100
== END 2023-12-08 14:31 | disposition home or self-care (01) ==
PROVIDERS: Emergency Provider Student in an Organized Health Care Education/Training Program; PCP Family Medicine
DX: O21.0 Mild hyperemesis gravidarum (principal)
CPT/HCPCS: 36415; 80053; 81001; 83735; 85025; 87086; 96361; 96374; 99282; 99284; J2405; J7120